=== PATIENT | male | born 1995 | race Caucasian/White ===

== ENCOUNTER 2017-05-17 11:42 | Emergency (ER) | payer OTHER ==
[2017-05-17 11:49] VITALS: RESP 18
--- NOTE | 2017-05-17 12:10 | ED ---
Overdose HPI <Bhumika Ragsdale - Last Filed: 05/17/17 12:20> - General Source: patient, EMS, RN notes reviewed Mode of arrival: EMS Limitations: no limitations - History of Present Illness MD Complaint: accidental overdose <Tato Hess - Last Filed: 05/17/17 12:54> - General Chief Complaint: Overdose Stated Complaint: Overdose Time Seen by Provider: 05/17/17 11:42 - History of Present Illness Initial Comments: This a 21-year-old male history of heroin abuse is does admit to taking heroin and using methamphetamine today. He was found unresponsive he did require ventilation assistance he was given nasal Narcan a total of 4 mg before he had any response. He also did fall at some point and hit the right eyebrow. The patient does admit to being up-to-date with his shots. He complains of a headache no neck or back pain no other injury. The patient was apparently having difficulty breathing and became agonal and did require a [id number] was administered by fire rescue per paramedics. (Tato Hess) - Related Data Home Medications Medication Instructions Recorded Confirmed No Known Home Medications [No 05/17/17 05/17/17 Known Home Medications] Allergies Allergy/AdvReac Type Severity Reaction Status Date / Time No Known Allergies Allergy Verified 05/17/17 12:38 Review of Systems ROS Other: All systems not noted in ROS Statement are negative. <Bhumika Ragsdale - Last Filed: 05/17/17 12:20> ROS Other: All systems not noted in ROS Statement are negative. <Tato Hess - Last Filed: 05/17/17 12:54> ROS Statement: Those systems with pertinent positive or pertinent negative responses have been documented in the HPI. Past Medical History Additional Past Medical History / Comment(s): hep C History of Any Multi-Drug Resistant Organisms: None Reported Past Surgical History: No Surgical Hx Reported Past Psychological History: No Psychological Hx Reported Smoking Status: Never smoker Past Alcohol Use History: Rare Past Drug Use History: Cocaine, Heroin, Marijuana, Methamphetamine <Tato Hess - Last Filed: 05/17/17 12:54> General Exam <Bhumika Ragsdale - Last Filed: 05/17/17 12:20> Limitations: no limitations General appearance: alert, anxious Head exam: Present: normocephalic, other (There is a approximately 170 laceration to the mid right eyebrow no active bleeding no step-off or crepitation it will require some repair.) Eye exam: Present: normal appearance, PERRL, EOMI. Absent: scleral icterus, conjunctival injection, periorbital swelling ENT exam: Present: normal exam, mucous membranes moist Neck exam: Present: normal inspection. Absent: tenderness, meningismus, lymphadenopathy Respiratory exam: Present: normal lung sounds bilaterally. Absent: respiratory distress, wheezes, rales, rhonchi, stridor Cardiovascular Exam: Present: regular rate, normal rhythm, normal heart sounds. Absent: systolic murmur, diastolic murmur, rubs, gallop, clicks GI/Abdominal exam: Present: soft, normal bowel sounds. Absent: distended, tenderness, guarding, rebound, rigid Extremities exam: Present: normal inspection, full ROM, normal capillary refill. Absent: tenderness, pedal edema, joint swelling, calf tenderness Back exam: Present: normal inspection Neurological exam: Present: alert, oriented X3, CN II-XII intact Psychiatric exam: Present: normal affect, anxious Skin exam: Present: warm, dry, intact, normal color. Absent: rash <Tato Hess - Last Filed: 05/17/17 12:54> - General Exam Comments Initial Comments: This is a well-developed well-nourished awake alert oriented times female he is anxious he also does demonstrate Margaret Coma Scale 15 (Tato Hess) Vital Signs 05/17/17 11:45 Temperature 97.1 F L Pulse Rate 67 Respiratory 18 Rate Blood Pressure 145/88 O2 Sat by Pulse 100 Oximetry Procedures <Bhumika Ragsdale - Last Filed: 05/17/17 12:20> <Tato Hess - Last Filed: 05/17/17 12:54> - Procedures Initial comment: The skin was anesthetized with 1% lidocaine. The laceration was then cleansed with Betadine and irrigated with normal saline. The wound was inspected, and there was no evidence of injury to deep structures. No foreign body was noted in the wound. A total of 3 skin sutures were placed utilizing 6-0 nylon 2 cm right eyebrow laceration. (Bhumika Ragsdale) Medical Decision Making <Bhumika Ragsdale - Last Filed: 05/17/17 12:20> - Radiology Data Radiology results: report reviewed (I did review the imaging and reports no acute findings.), image reviewed <Tato Hess - Last Filed: 05/17/17 12:54> - Medical Decision Making The patient's right eyebrow laceration was repaired by my nurse practitioner. Patient will be discharged she is awake alert oriented 3 and reevaluation no acute findings. He is released in police custody at this time. (Tato Hess) Disposition <Bhumika Ragsdale - Last Filed: 05/17/17 12:20> <Tato Hess - Last Filed: 05/17/17 12:54> Clinical Impression: Accidental heroin overdose, Methamphetamine abuse, Laceration of right eyebrow Disposition: HOME SELF-CARE Condition: Poor Instructions: Narcotic Abuse (ED), Laceration (ED), Care For Your Stitches (ED) , Methamphetamine Abuse (ED) Referrals: None,Stated [Primary Care Provider] - 1-2 days
--- NOTE | 2017-05-17 12:41 | CT ---
EXAMINATION TYPE: CT brain larissa pryor DATE OF EXAM: 05/17/2017 COMPARISON: NONE HISTORY: Overdose with headache and neck pain CT DLP: 1601 mGycm. Automated Exposure Control for Dose Reduction was Utilized. TECHNIQUE: CT scan of the head and cervical spine are performed without contrast. FINDINGS: There is no acute intracranial hemorrhage, mass effect, or midline shift identified. The ventricles and sulci are within normal limits in size. Anderson-white matter differentiation is maintain ed. The globes are intact and the visualized sinuses are clear. Cervical spine is visualized in its entirety from C1 through upper thoracic levels and demonstrates l oss of normal cervical curvature without evidence of acute fracture or dislocation. Prevertebral sof t tissue appears within normal limits. The C1-C2 articulation is within normal limits on the coronal images. Vertebral body heights and disc space heights are maintained. Lung neely are clear. IMPRESSION: 1. There is no acute fracture or dislocation evident in the cervical spine. 2. No acute intracranial hemorrhage, mass effect, or midline shift is seen.
[2017-05-17 13:02] VITALS: BP 132/60; PULSE 78; TEMP 97.7
== END 2017-05-17 13:02 | disposition home or self-care (01) ==
LOC: EC 11:42
DX: S01.111A Laceration without foreign body of right eyelid and periocular area, initial encounter (principal); R51 Headache; R06.00 Dyspnea, unspecified; T40.1X1A Poisoning by heroin, accidental (unintentional), initial encounter; F19.10 Other psychoactive substance abuse, uncomplicated; F15.10 Other stimulant abuse, uncomplicated; Z86.19 Personal history of other infectious and parasitic diseases; W18.30XA Fall on same level, unspecified, initial encounter
CPT/HCPCS: 12011; 70450; 72125; 99284

== ENCOUNTER 2020-05-07 00:31 | Emergency (ER) | payer OTHER ==
[2020-05-07 00:39] VITALS: TEMP 98
[2020-05-07] MEDS ORDERED: LORazepam 2 MG/ML INJ IV STA (01:26)
[2020-05-07] MEDS ORDERED: SODIUM CHLORIDE 0.9% 1,000 ML IV ONE (01:26)
--- NOTE | 2020-05-07 01:27 | ED ---
General Adult HPI - General Chief complaint: Chest Pain Stated complaint: Overdose Time Seen by Provider: 05/07/20 01:03 Source: patient Mode of arrival: ambulatory Limitations: no limitations - History of Present Illness Initial comments: This patient is 24-year-old man who presents with concern that he is having heart attack. The patient states that he is experiencing racing heart, after ingesting methamphetamine. Patient denies any chest pain. No dyspnea, diaphoresis, nausea or vomiting. -: hour(s) Location: chest Severity scale (1-10): 0 Quality: other Consistency: constant (Pounding) Improves with: none Worsens with: none Associated Symptoms: other (Dictation) Treatments Prior to Arrival: none - Related Data Home Medications Medication Instructions Recorded Confirmed No Known Home Medications 05/17/17 05/17/17 Allergies Allergy/AdvReac Type Severity Reaction Status Date / Time No Known Allergies Allergy Verified 05/17/17 12:38 Review of Systems ROS Statement: Those systems with pertinent positive or pertinent negative responses have been documented in the HPI. ROS Other: All systems not noted in ROS Statement are negative. Constitutional: Denies: fever, chills Respiratory: Denies: cough, dyspnea Cardiovascular: Reports: palpitations. Denies: chest pain, orthopnea, edema, syncope Gastrointestinal: Denies: abdominal pain, nausea, vomiting Genitourinary: Denies: dysuria, hematuria Musculoskeletal: Denies: back pain Skin: Denies: rash Neurological: Reports: paresthesias (Bilateral hands). Denies: headache Psychiatric: Reports: anxiety. Denies: depression, suicidal thoughts Past Medical History Additional Past Medical History / Comment(s): hep C History of Any Multi-Drug Resistant Organisms: None Reported Past Surgical History: No Surgical Hx Reported Past Psychological History: No Psychological Hx Reported Past Alcohol Use History: Rare Past Drug Use History: Cocaine, Heroin, Marijuana, Methamphetamine General Exam Limitations: no limitations General appearance: alert, in no apparent distress, anxious Head exam: Present: atraumatic, normocephalic Eye exam: Present: normal appearance. Absent: scleral icterus, conjunctival injection ENT exam: Present: normal oropharynx Neck exam: Present: normal inspection Respiratory exam: Present: normal lung sounds bilaterally. Absent: respiratory distress, wheezes, rales, rhonchi, stridor Cardiovascular Exam: Present: normal rhythm, tachycardia, normal heart sounds. Absent: systolic murmur, diastolic murmur, rubs, gallop GI/Abdominal exam: Present: soft. Absent: distended, tenderness, guarding, rebound Back exam: Present: normal inspection, CVA tenderness (L) Neurological exam: Present: alert, CN II-XII intact. Absent: motor sensory deficit Psychiatric exam: Present: anxious Skin exam: Present: warm, dry, intact, normal color. Absent: rash Course Vital Signs 05/07/20 05/07/20 05/07/20 00:36 01:00 01:20 Temperature 98.0 F Pulse Rate 80 Pulse Rate [ 116 H Mammography Tech ] Respiratory 22 30 H Rate Blood Pressure 180/113 O2 Sat by Pulse 99 Oximetry 05/07/20 05/07/20 01:39 03:20 Temperature Pulse Rate 101 H 90 Pulse Rate [ Mammography Tech ] Respiratory 25 H 18 Rate Blood Pressure 139/87 116/83 O2 Sat by Pulse 100 97 Oximetry EKG Findings - EKG Results: EKG: interpreted by ERMD, sinus rhythm, normal QRS, normal ST/T - Blocks, [place], Hypertrophy, ST Abn: QRS axis and voltage: right axis deviation (+90 to +180) Medical Decision Making - Medical Decision Making Patient is 24-year-old man presenting here with palpitations and paresthesias after methamphetamine use. The symptoms did resolve with Ativan. Patient observed and would like to go home. - Lab Data Lab Results 05/07/20 Range/Units 02:19 Urine Opiates Screen Not Detected (NotDetected) Ur Oxycodone Screen Not Detected (NotDetected) Urine Methadone Screen Not Detected (NotDetected) Ur Propoxyphene Screen Not Detected (NotDetected) Ur Barbiturates Screen Not Detected (NotDetected) U Tricyclic Antidepress Not Detected (NotDetected) Ur Phencyclidine Scrn Not Detected (NotDetected) Ur Amphetamines Screen Detected H (NotDetected) U Methamphetamines Scrn Detected H (NotDetected) U Benzodiazepines Scrn Not Detected (NotDetected) Urine Cocaine Screen Not Detected (NotDetected) U Marijuana (THC) Screen Detected H (NotDetected) Disposition Clinical Impression: Methamphetamine abuse Disposition: HOME SELF-CARE Condition: Fair Instructions (If sedation given, give patient instructions): Methamphetamine Abuse (ED) Is patient prescribed a controlled substance at d/c from ED?: No Referrals: None,Stated [Primary Care Provider] - 1-2 days
[2020-05-07 02:43] LABS: Amphetamine Screen,Urine Detected (NotDetected); Barbiturate Screen,Urine Not Detected (NotDetected); Benzodiazepines Screen,Urine Not Detected (NotDetected); Cocaine Screen,Urine Not Detected (NotDetected); Methadone Screen, Urine Not Detected (NotDetected); Opiate Screen,Urine Not Detected (NotDetected); Oxycodone Screen, Urine Not Detected (NotDetected); Phencyclidine Screen,Urine Not Detected (NotDetected); Tricyclic Antidepressant,Urine Not Detected (NotDetected); Urn Cannabinoid Scrn Detected (NotDetected)
[2020-05-07 03:26] VITALS: BP 116/83; PULSE 90; RESP 18
== END 2020-05-07 03:26 | disposition home or self-care (01) ==
LOC: EC 00:31
DX: F15.10 Other stimulant abuse, uncomplicated (principal); Z86.19 Personal history of other infectious and parasitic diseases
CPT/HCPCS: 93005; 80306; J2060; 96361; 96374; 99285